=== PATIENT | female | born 1990 | race Caucasian/White ===

== ENCOUNTER 2016-10-08 16:30 | Emergency (ER) | payer BC ==
[~2016-10-08] VITALS: Ht 152.4 cm; Wt 44.0 kg
[~2016-10-08 16:30] MED LIST: Motrin PO; NO MEDS
[2016-10-08 16:59] LABS: ADD MIUA? YES; BILIRUBIN NEGATIVE; BLOOD MODERATE; COLOR YELLOW ((YELLOW)); GLUCOSE (STRIP) NEGATIVE; KETONES NEGATIVE; LEUKOCYTES NEGATIVE; NITRITE NEGATIVE; PH, URINE 6.5 (5-8); PROTEIN (STRIP) NEGATIVE; SPECIFIC GRAVITY 1.025 (1.000-1.030)
[2016-10-08] MEDS ORDERED: HYDROXYZINE PA100 MG PO (17:05)
[2016-10-08] MEDS ORDERED: XANAX1 MG PO (17:05)
[2016-10-08] MEDS ORDERED: LAMICTAL100 MG PO (17:06)
[2016-10-08] MEDS ORDERED: WELLBUTRIN XL300 MG PO (17:06)
[2016-10-08] MEDS ORDERED: XULANE PATCH1 EACH TD (17:06)
[2016-10-08 17:10] LABS: BACTERIA NONE SEEN /HPF; CASTS NONE SEEN /LPF; CRYSTALS NONE SEEN; EPITHELIAL CELLS RARE /HPF; MUCUS NONE SEEN /LPF; PATHOLOGICAL CAST NONE SEEN; RED BLOOD CELLS 0-5 /HPF (0-5); SMALL ROUND CELL NONE SEEN; WHITE BLOOD CELLS 0-5 /HPF (0-5); YEAST-LIKE CELL NONE SEEN
[2016-10-08 17:46] LABS: HEMATOCRIT 35.4 % (36.0-46.0); MCH 29.8 PG (29.0-34.0); MCHC 33.3 G/DL (30.0-36.0); MCV 89.4 FL (83-99); MEAN PLAT.VOLUME 9.5 uM^3 (9.5-12.4); PLATELET COUNT 293 K/uL (156-360); RBC DIS.WIDTH-CV 11.7 % (11.8-14.6); RBC DIS.WIDTH-SD 37.2 % (39-53); RED BLOOD COUNT 3.96 M/uL (3.80-5.20); WHITE BLOOD COUNT 6.1 K/uL (4.1-10.2)
[2016-10-08 17:54] LABS: CHLORIDE 107 mEq/L (99-109); SODIUM 141 mEq/L (136-147)
[2016-10-08 17:56] LABS: GLUCOSE 92 mg/dL (70-99)
[2016-10-08 17:57] LABS: ANION GAP 10 MEQ/L (2-14)
[2016-10-08 17:58] LABS: TOTAL BILIRUBIN 0.3 mg/dL (0.0-1.0)
[2016-10-08 17:59] LABS: ALKALINE PHOSPHATASE 40 IU/L (3-129)
[2016-10-08 18:00] LABS: GFR ESTIMATE (CALCULATED) > 59 mL/min/
[2016-10-08 18:01] LABS: UREA NITROGEN (BUN) 9 mg/dL (9-23)
[2016-10-08 18:03] LABS: LIPASE 18 U/L (1.0-51.0)
[2016-10-08 18:11] LABS: QUANTITATIVE HCG < 4.0 MIU/ML
[2016-10-08] MEDS ORDERED: PYRIDIUM100 MG PO (19:05)
[2016-10-08] MEDS ORDERED: MOTRIN600 MG PO (19:05)
[2016-10-08 19:21] VITALS: BP 99/60
== END 2016-10-08 19:24 | disposition home or self-care (01) ==
LOC: EME 16:30
PROVIDERS: Nurse Practitioner Family
DX: N30.90 Cystitis, unspecified without hematuria (principal); Z87.440 Personal history of urinary (tract) infections; Z87.891 Personal history of nicotine dependence
CPT/HCPCS: 74177; 80053; 81003; 83690; 84702; 85027; 87086; 99281; 99285; J7030

== ENCOUNTER 2017-10-05 06:25 | Inpatient (IN) | payer BC ==
[~2017-10-05] VITALS: Ht 154.9 cm; Wt 57.0 kg
[2017-10-05] VITALS (11 sets, daily range): BP systolic 98–122; BP diastolic 57–74
[~2017-10-05 06:25] MED LIST changes: +HYDROXYZINE PA100 MG PO; +LAMICTAL100 MG PO; +MOTRIN600 MG PO; +PYRIDIUM100 MG PO; +WELLBUTRIN XL300 MG PO; +XANAX1 MG PO; +XULANE PATCH1 EACH TD
[2017-10-05] MEDS ORDERED: PRENATAL TABLE1 EAC3 PO (07:14)
[2017-10-05 07:41] LABS: BASOPHIL (%) 0.3 % (0-1); EOSINOPHIL (%) 0.7 % (0-5); EOSINOPHIL COUNT 0.1 K/uL (0-0.3); HEMATOCRIT 33.4 % (36.0-46.0); HEMOGLOBIN 11.3 G/DL (11.9-15.5); LYMPHOCYTE COUNT 2.2 K/uL (1.0-2.8); MCH 29.7 PG (29.0-34.0); MCHC 33.8 G/DL (30.0-36.0); MCV 87.9 FL (83-99); MONOCYTE (%) 8.5 % (3-12); NEUTROPHIL (%) 69.5 % (45-76); PLATELET COUNT 266 K/uL (156-360); RBC DIS.WIDTH-SD 41.4 % (39-53); WHITE BLOOD COUNT 11.6 K/uL (4.1-10.2)
[2017-10-05] MEDS ORDERED: IBUPROFEN800 MG PO (09:57)
[2017-10-05 11:30] LABS: AMPHETAMINE NEGATIVE (500 ng/mL); BARBITURATES NEGATIVE (200 ng/mL); BENZODIAZEPINES NEGATIVE (150 ng/mL); BUPRENORPHINE NEGATIVE (10 ng/mL); COCAINE NEGATIVE (150 ng/mL); METHADONE NEGATIVE (200 ng/mL); METHAMPHETAMINE NEGATIVE (500 ng/mL); OPIATES (MORPHINE) NEGATIVE (100 ng/mL); OXYCODONE NEGATIVE (100 ng/mL); PHENCYCLIDINE NEGATIVE (25 ng/mL); PROPOXYPHENE NEGATIVE (300 ng/mL); THC CANNABINOIDS NEGATIVE (50 ng/mL); TRICYCLIC ANTIDEPRESSANTS NEGATIVE (300 ng/mL)
[2017-10-06 14:52] VITALS: BP 126/57
== END 2017-10-06 17:45 | disposition home or self-care (01) | DRG 775 ==
LOC: LDRP-OP 06:25 → 2WEST 06:26 → LDRP-OP 11-05 09:29
PROVIDERS: Advanced Practice Midwife; Obstetrics & Gynecology Gynecology
DX: O69.81X0 Labor and delivery complicated by cord around neck, without compression, not applicable or unspecified (principal); O99.344 Other mental disorders complicating childbirth; F41.0 Panic disorder [episodic paroxysmal anxiety]; F43.10 Post-traumatic stress disorder, unspecified; Z3A.39 39 weeks gestation of pregnancy; Z37.0 Single live birth; Z87.891 Personal history of nicotine dependence; Z87.440 Personal history of urinary (tract) infections
CPT/HCPCS: 85025; C1755; J3010; J7120